=== PATIENT | male | born 1945 | race Caucasian/White ===

== ENCOUNTER 2019-05-09 21:34 | Emergency (ER) | payer OTHER ==
[~2019-05-09] VITALS: Ht 160 cm; Wt 80.7 kg
[2019-05-09] MEDS ORDERED: JANUVIA50 MG (21:49)
[2019-05-09] MEDS ORDERED: SIMVASTATIN40 MG (21:49)
[2019-05-09] MEDS ORDERED: HYDROCHLOROTHIA50 MG (21:49)
[2019-05-09] MEDS ORDERED: COZAAR50 MG (21:49)
[2019-05-09] MEDS ORDERED: METFORMIN HCL500 MG (21:49)
[2019-05-09] MEDS ORDERED: ULTRACET (21:50)
[2019-05-09] MEDS ORDERED: ECOTRIN81 MG (21:50)
== END 2019-05-09 22:10 | disposition home or self-care (01) ==
LOC: ER 21:34
DX: H66.91 Otitis media, unspecified, right ear (principal)

== ENCOUNTER 2019-11-06 18:23 | Emergency (ER) | payer OTHER ==
[~2019-11-06] VITALS: Ht 165.1 cm; Wt 78.0 kg
[~2019-11-06 18:23] MED LIST: COZAAR50 MG; ECOTRIN81 MG; HYDROCHLOROTHIA50 MG; JANUVIA50 MG; METFORMIN HCL500 MG; SIMVASTATIN40 MG; ULTRACET
== END 2019-11-06 22:52 | disposition home or self-care (01) ==
LOC: ER 18:23
DX: K52.89 Other specified noninfective gastroenteritis and colitis (principal)

== ENCOUNTER 2020-11-20 17:43 | Emergency (ER) | payer OTHER ==
[~2020-11-20] VITALS: Ht 162.6 cm; Wt 77.1 kg
== END 2020-11-20 22:40 | disposition home or self-care (01) ==
LOC: ER 17:43 → CPU-OBS 18:41 → ER 18:41
DX: R07.89 Other chest pain (principal)

== ENCOUNTER 2021-08-12 11:30 | Inpatient (IN) | payer OTHER ==
[~2021-08-12] VITALS: Ht 162.6 cm; Wt 79.4 kg
[2021-08-12] MEDS ORDERED: PEPCID AC20 MG PO (11:42)
[2021-08-12] MEDS ORDERED: DICYCLOMIN10 MG/5 M1 (11:42)
[2021-08-12] MEDS ORDERED: ACID REDUCER20 M1 PO (11:43)
[2021-08-12] MEDS ORDERED: ACIDOPHILUS1 EAC1 PO (11:43)
[2021-08-13] MEDS ORDERED: TAMSULOSIN HCL0.4 MG (15:55)
[2021-08-13] MEDS ORDERED: OMEPRAZOLE20 MG (15:55)
[2021-08-13] MEDS ORDERED: VARDENAFIL HCL20 MG (15:55)
[2021-08-13] MEDS ORDERED: PROBIOTIC ACID1 EAC1 (15:55)
== END 2021-08-26 15:08 | disposition home or self-care (01) | DRG 337 ==
LOC: ER 11:30 → MEDI 23:00 → SEC-K 23:00 → MEDI 08-13 18:30
PROVIDERS: ADMIT Surgery; ATTEND Surgery
PROC: BW2110Z Computerized Tomography (CT Scan) of Abdomen and Pelvis using Low Osmolar Contrast, Unenhanced and Enhanced (ICD-10-PCS; 2021-08-13)
PROC: 05HY33Z Insertion of Infusion Device into Upper Vein, Percutaneous Approach (ICD-10-PCS; 2021-08-15)
PROC: 0DNC0ZZ Release Ileocecal Valve, Open Approach (ICD-10-PCS; principal; 2021-08-16 08:15)
DX: K56.51 Intestinal adhesions [bands], with partial obstruction (principal); K52.89 Other specified noninfective gastroenteritis and colitis; I10 Essential (primary) hypertension; E11.9 Type 2 diabetes mellitus without complications; Z79.4 Long term (current) use of insulin; Z20.822 Contact with and (suspected) exposure to COVID-19

== ENCOUNTER 2022-05-01 07:07 | Emergency (ER) | payer OTHER ==
[~2022-05-01] VITALS: Ht 165.1 cm; Wt 77.1 kg
[~2022-05-01 07:07] MED LIST changes: +ACID REDUCER20 M1 PO; +ACIDOPHILUS1 EAC1 PO; +DICYCLOMIN10 MG/5 M1; +OMEPRAZOLE20 MG; +PEPCID AC20 MG PO; +PROBIOTIC ACID1 EAC1; +TAMSULOSIN HCL0.4 MG; +VARDENAFIL HCL20 MG
== END 2022-05-01 12:00 ==
LOC: ER 07:07
DX: U07.1 COVID-19 (principal); E11.9 Type 2 diabetes mellitus without complications; I10 Essential (primary) hypertension; R51.9 Headache, unspecified

== ENCOUNTER 2022-08-16 10:42 | Inpatient (IN) | payer OTHER ==
[~2022-08-16] VITALS: Ht 165.1 cm; Wt 77.1 kg
[2022-08-22] MEDS ORDERED: TAMSULOSIN HCL0.4 MG PO (08:26)
[2022-08-22] MEDS ORDERED: LIPITOR40 MG PO (08:27)
[2022-08-22] MEDS ORDERED: LOSARTAN POTAS100 MG PO (08:27)
[2022-08-22] MEDS ORDERED: GABAPENTIN300 MG PO (08:28)
[2022-08-22] MEDS ORDERED: METFORMIN HCL500 MG PO (08:33)
[2022-08-22] MEDS ORDERED: METFORMIN HCL1000 M2 PO (10:08)
== END 2022-08-22 10:59 | disposition home or self-care (01) | DRG 65 ==
LOC: ER 10:42 → MEDI 21:22 → SURG 21:22
PROVIDERS: ADMIT Internal Medicine; ATTEND Internal Medicine
PROC: BW28ZZZ Computerized Tomography (CT Scan) of Head (ICD-10-PCS; principal; 2022-08-16)
PROC: BW28YZZ Computerized Tomography (CT Scan) of Head using Other Contrast (ICD-10-PCS; 2022-08-16)
PROC: B345ZZZ Ultrasonography of Bilateral Common Carotid Arteries (ICD-10-PCS; 2022-08-17)
PROC: B24BZZZ Ultrasonography of Heart with Aorta (ICD-10-PCS; 2022-08-17)
PROC: 4A12X4Z Monitoring of Cardiac Electrical Activity, External Approach (ICD-10-PCS; 2022-08-17)
DX: I63.511 Cerebral infarction due to unspecified occlusion or stenosis of right middle cerebral artery (principal); G81.94 Hemiplegia, unspecified affecting left nondominant side; R26.89 Other abnormalities of gait and mobility; I69.398 Other sequelae of cerebral infarction; S09.8XXA Other specified injuries of head, initial encounter; I10 Essential (primary) hypertension; Z79.4 Long term (current) use of insulin; E78.5 Hyperlipidemia, unspecified; N40.0 Benign prostatic hyperplasia without lower urinary tract symptoms; E11.65 Type 2 diabetes mellitus with hyperglycemia; W06.XXXA Fall from bed, initial encounter; Z20.822 Contact with and (suspected) exposure to COVID-19

== ENCOUNTER 2022-09-24 08:34 | Outpatient (CLI) | payer OTHER ==
[~2022-09-24 08:34] MED LIST changes: +ATORVASTATIN CA40 MG PO; +BENADRYL25 MG PO; +GABAPENTIN300 MG PO; +LIPITOR40 MG PO; +LOSARTAN POTAS100 MG PO; +METFORMIN HCL1000 M2 PO; +METFORMIN HCL500 MG PO; +TAMSULOSIN HCL0.4 MG PO; +ZYRTEC10 M3 PO
== END 2022-09-24 08:36 | disposition home or self-care (01) ==
LOC: TOM 08:34
PROVIDERS: ATTEND Psychiatry & Neurology Clinical Neurophysiology
DX: G44.011 Episodic cluster headache, intractable (principal)